=== PATIENT | male | born 1965 | race African-American/Black ===

== ENCOUNTER 2019-08-31 12:12 | Emergency (ER) | payer OTHER ==
[~2019-08-31] VITALS: Ht 162.6 cm; Wt 70.3 kg
[~2019-08-31 12:12] MED LIST: ASPIR 8181 MG; NORVASC5 MG; TAMS0.4C; VASOTEC20 MG PO
== END 2019-08-31 15:03 | disposition home or self-care (01) ==
LOC: ER 12:12
DX: G44.319 Acute post-traumatic headache, not intractable (principal); M54.2 Cervicalgia; S00.83XS Contusion of other part of head, sequela; W22.8XXS Striking against or struck by other objects, sequela